=== PATIENT | male | born 1955 | race Caucasian/White ===

== ENCOUNTER 2018-07-17 05:48 | Day surgery (SDC) | payer MEDICARE, BC ==
[2018-07-17] VITALS (9 sets, daily range): BP systolic 95–116; BP diastolic 60–76
[~2018-07-17] VITALS: Ht 193 cm; Wt 89.4 kg
[~2018-07-17 05:48] MED LIST: LASIX20 M1 ORAL; POTASSIUM CHLO20 ME2 ORAL
[2018-07-17] MEDS ORDERED: ASPIR 8181 MG ORAL (06:51)
[2018-07-17] MEDS ORDERED: LR 1000ml 1,000 ML IVLG SCH (07:00)
[2018-07-17 07:22] LABS: BASOPHILS % (AUTO) 1.7 % (0.0-2.0); BLOOD UREA NITROGEN 15 mg/dL (7-18); CHLORIDE 106 MMOL/L (98-107); CREATININE 1.1 MG/DL (0.55-1.30); EOSINOPHILS % (AUTO) 3.4 % (0.0-3.0); HEMOGLOBIN 14.2 G/DL (14.2-18.0); LYMPHOCYTES % (AUTO) 41.2 % (20.0-45.0); MEAN CORPUSCULAR VOLUME 93 FL (80-99); MONOCYTES % (AUTO) 11.1 % (1.0-10.0); NEUTROPHILS % (AUTO) 42.6 % (45.0-75.0); PLATELET COUNT 164 K/UL (150-450); POTASSIUM 3.8 MMOL/L (3.5-5.1); RED CELL DISTRIBUTION WIDTH 11.4 % (11.6-14.8); SODIUM 140 MMOL/L (136-145); WHITE BLOOD COUNT 5.7 K/UL (4.8-10.8)
--- NOTE | 2018-07-17 07:33 | Anethesia Preoperative Eval ---
Anesthesia Pre-op PMH/ROS General Date of Evaluation: Jul 17, 2018 Time of Evaluation: 07:19 Anesthesiologist: Maria Eugenia Sesay ASA Score: ASA 3 Mallampati Score Class I : Soft palate, uvula, fauces, pillars visible Class II: Soft palate, uvula, fauces visible Class III: Soft palate, base of uvula visible Class IV: Only hard plate visible Mallampati Classification: Class I Surgeon: Henrry Diagnosis: Persistent atrial fibrillation Surgical Procedure: Transechophageal echocardiogram; synchronized cardioversion Social History: alcohol use Family History: no anesthesia problems Allergies: Coded Allergies: No Known Allergies (Unverified , 10/15/16) Medications: see eMAR Past Medical History Cardiovascular: Reports: arrhythmia - persistent artrial fibrillation Pulmonary: Reports: other - 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 Exam Physician Exam Last Vital Signs Date Time Temp Pulse Resp B/P (MAP) Pulse Ox O2 Delivery O2 Flow Rate FiO2 07/17/18 07:01 97.7 67 20 102/60 (74) 95 97.7 07/17/18 06:51 Room Air Constitutional: NAD Neurologic: CN 2-12 intact Cardiovascular: RRR Respiratory: CTA Gastrointestinal: S/NT/ND Airway Exam Mallampati Score: Class I MO: full Neck: no limitations TMD: > 3 FB ROM: full Teeth: intact Dentures: no upper, no lower Anesthesia Pre-op A/P Labs Hematology Test 07/17/18 06:53 White Blood Count Pending Red Blood Count Pending Hemoglobin Pending Hematocrit Pending Mean Corpuscular Volume Pending Mean Corpuscular Hemoglobin Pending Mean Corpuscular Hemoglobin Concent Pending Red Cell Distribution Width Pending Platelet Count Pending Mean Platelet Volume Pending Neutrophils (%) (Auto) Pending Lymphocytes (%) (Auto) Pending Monocytes (%) (Auto) Pending Eosinophils (%) (Auto) Pending Basophils (%) (Auto) Pending Coagulation Test 07/17/18 06:53 Prothrombin Time Pending Prothromb Time International Ratio Pending Activated Partial Thromboplast Time Pending Chemistry Test 07/17/18 06:53 Sodium Level Pending Potassium Level Pending Chloride Level Pending Carbon Dioxide Level Pending Blood Urea Nitrogen Pending Creatinine Pending Estimat Glomerular Filtration Rate Pending Glucose Level Pending Calcium Level Pending Studies Pre-op Studies: EKG - 07/17/18: Atrial fibrillation; ventricular rate 80 Risk Assessment & Plan Assessment: asymptomatic 63 year old male with persistent atrial fibrillation requiring cardioversion Plan: MAC Status Change Before Surgery: No Pre-Antibiotics Given Within 1 Hr of Incision: Maria Eugenia Christopher CRNA Jul 17, 2018 07:33
[2018-07-17] MEDS ORDERED: Midazolam 2mg/2ml Inj ONE (07:37)
[2018-07-17] MEDS ORDERED: fentaNYL 100 mcg/2 mL IV ONE (07:37)
[2018-07-17 08:11] LABS: ANION GAP 8 mmol/L (5-15); CARBON DIOXIDE 26 MMOL/L (21-32)
[2018-07-17] MEDS ORDERED: Propofol 200mg/20ml IV ONE (08:30)
[2018-07-17] MEDS ORDERED: Lidocaine 1% MPF 10mg/ml 5ml ONE (08:30)
[2018-07-17] MEDS ORDERED: Metoprolol 5mg/5ml Inj ONE (08:30)
[2018-07-17] MEDS ORDERED: LR 1000ml ONE (08:30)
--- NOTE | 2018-07-17 08:34 | Pre-Procedure Note/Attestation ---
Pre-Procedure Note/Attestation Complete Prior to Procedure Procedure Narrative: YANELI FOLLOWED BY [facility]ERS[facility] Indications for Procedure Pre-Operative Diagnosis: ATRIAL FIBRILLATION Attestation I attest that I discussed the nature of the procedure; its benefits; risks and complications; and alternatives (and the risks and benefits of such alternatives ), prior to the procedure, with the patient (or the patient's legal client service representative). I attest that, if there was a reasonable possibility of needing a blood transfusion, the patient (or the patient's legal client service representative) was given the [facility] standardized written summary, pursuant to the Yassine Braeden Blood Safety Act ([place] Health and Safety Code # 1645, as amended). I attest that I re-evaluated the patient just prior to the surgery and that there has been no change in the patient's H&P, except as documented below: Deion Sales MD Jul 17, 2018 08:34
--- NOTE | 2018-07-17 09:12 | Immediate Post-Op Evaluation ---
Immediate Post-Op Evalulation Immediate Post-Op Evalulation Procedure: YANELI and cardioversion Date of Evaluation: Jul 17, 2018 Time of Evaluation: 09:05 IV Fluids: LR 200 ml Blood Pressure Systolic: 105 Blood Pressure Diastolic: 73 Pulse Rate: 74 Respiratory Rate: 16 O2 Sat by Pulse Oximetry: 99 Temperature (Fahrenheit): 97.6 Pain Score (1-10): 0 Nausea: No Vomiting: No Complications none Patient Status: reacts, patent Hydration Status: adequate Given Within 1 Hr of Incision: Maria Eugenia Christopher CRNA Jul 17, 2018 09:12
--- NOTE | 2018-07-17 10:23 | 48 Hour Post Anesthesia Eval ---
Post Anesthesia Evaluation Procedure: YANELI and cardioversion Date of Evaluation: Jul 17, 2018 Time of Evaluation: 10:22 Blood Pressure Systolic: 116 0: 75 Pulse Rate: 73 Respiratory Rate: 20 Temperature (Fahrenheit): 97.6 O2 Sat by Pulse Oximetry: 98 Airway: patent Nausea: No Vomiting: No Pain Intensity: 0 Hydration Status: adequate Cardiopulmonary Status: stable Mental Status/LOC: patient returned to baseline Follow-up Care/Observations: none Post-Anesthesia Complications: none Follow-up care needed: ready to discharge Maria Eugenia Sesay CRNA Jul 17, 2018 10:23
--- NOTE | 2018-07-17 17:45 | History and Physical Report ---
DATE OF ADMISSION: 07/17/2018 CHIEF COMPLAINT: Fatigue and shortness of breath with exertion. HISTORY OF PRESENT ILLNESS: The patient is a very pleasant 61-year-old gentleman with history of atrial fibrillation, history of Mycobacterium avium intracellulare or MAC, who continues to have trouble with fatigue and dyspnea on exertion and feeling tiredness with exertions. The patient's atrial fibrillation duration is approximately over a year. A 2D echocardiography in the office had shown normal left atrial size and normal left ventricular systolic function with LVEF approximately 50% to 55%. The patient has been considering cardioversion attempts to get back to sinus rhythm for some time and recently, he had made his mind to proceed with an attempt for electrical cardioversion. He presents to this facility as an outpatient for transesophageal echocardiography to rule out left atrial thrombus as he is not anticoagulated due to the fact that his CHADS-VASC score is 0. He takes a full-dose aspirin. Current, he denies any chest pain or shortness of breath. A 12-lead electrocardiogram preoperatively confirmed atrial fibrillation with controlled ventricular response. PAST MEDICAL HISTORY: Atrial fibrillation, the duration of which is unknown, but appears to be over a year and history of MAC. LIST OF MEDICATIONS: Aspirin 325 mg p.o. daily. ALLERGIES: No known drug allergies. FAMILY HISTORY: No premature coronary artery disease in the first-degree relatives. HABITS: Denies any tobacco, alcohol, or illicit drug use. REVIEW OF SYSTEMS: HEENT: Denies any headache, diplopia, or blurred vision. CONSTITUTIONAL: He complains of fatigue, feeling tiredness, but no fever, chills, or night sweats. CARDIOVASCULAR: Denies any chest pain, but some fatigue and tiredness and slight shortness of breath with activities mainly strenuous ones. Denies any PND, orthopnea, or leg swelling. PULMONARY: Denies any cough, hemoptysis, or wheezing. GASTROINTESTINAL: Denies any nausea, vomiting, diarrhea, constipation, abdominal pain, or GI bleed. GENITOURINARY: Denies any hematuria, dysuria, or incontinence. NEUROLOGY: Denies any motor dysfunction, sensory deficit, or altered speech. PHYSICAL EXAMINATION: VITAL SIGNS: Blood pressure today was 102/60 mmHg, pulse of 67, respirations of 20, O2 saturation 95% on room air, and temperature 97.7 degrees Fahrenheit. GENERAL: The patient is a very pleasant 63-year-old gentleman, in no apparent respiratory distress. Alert and oriented x4. HEENT: Atraumatic and normocephalic. Anicteric. Pupils are equal, round, and reactive to light and accommodation. Extraocular muscles intact. NECK: JVP less than 5 cm. No carotid bruit. Carotid upstroke is 2+ bilaterally. CARDIOVASCULAR: Normal S1 and S2. Regular rate and rhythm. No murmurs, gallops, or rubs. PMI is at fourth intercostal space in the midclavicular line. LUNGS: Clear to auscultation bilaterally. ABDOMEN: Irregularly irregular rhythm. No murmurs, gallops, or rubs. LUNGS: Clear to auscultation bilaterally. ABDOMEN: Soft, nontender, and nondistended. No hepatosplenomegaly. Positive bowel sounds. EXTREMITIES: No evidence of edema, clubbing, or cyanosis. LABORATORY FINDINGS: WBC is 5.7, hemoglobin 14.2, hematocrit of 39.0, and platelet count is 164,000. Sodium is 140, potassium is 3.8, chloride 106, bicarbonate 26, BUN 15, and creatinine 1.1. Glucose is 101. Calcium is 9.0. INR is 1.0. ASSESSMENT AND PLAN: The patient is a very pleasant 63-year-old gentleman, who presents to this facility as an outpatient for an attempt for direct current cardioversion. Prior to this procedure, we would like to obtain transesophageal echocardiography to rule out left atrial appendage thrombus measuring the emptying velocity of left atrial appendage and to assess for possible fibrin strands in the left atrial cavity. The patient has requested this test given being symptomatic with atrial fibrillation. He was discussed the risks, benefits, and alternatives of the procedure. He has agreed to the procedure. A 12-lead electrocardiogram this morning has confirmed atrial fibrillation with controlled ventricular response. Of note, given the fact that he has CHADS-VASC score of 0, he has not required anticoagulation therapy and had been taking only aspirin 325 mg daily. If the patient's YANELI is negative for thrombus, we will proceed with direct current cardioversion of atrial fibrillation. We will try 200 joules of biphasic synchronized energy. Should the patient convert to sinus rhythm, we will have the patient on flecainide 50 mg twice a day for a duration of about a month and continue aspirin after which time, we would consider discontinuing both agents. Deion Sales M.D. DR: GARRETT JOB#: [id number] CC:
--- NOTE | 2018-07-17 20:00 | Procedure Note ---
PREOPERATIVE DIAGNOSIS: Atrial fibrillation, appears to be persistent. POSTOPERATIVE FINDINGS: Successful cardioversion of atrial fibrillation to sinus rhythm using 200 joules of synchronized energy. DESCRIPTION OF PROCEDURE: Following transesophageal procedure and face of lack of left atrial thrombus to this procedure. We proceeded with a direct current cardioversion of atrial fibrillation. We selected a 200 joules of synchronized energy, which successfully converted the patient in underlying atrial fibrillation to sinus rhythm at a rate of around 75. The patient tolerated the procedure well without developing any complications. The patient was transferred to the recovery room. CONCLUSION: Successful direct current cardioversion of atrial fibrillation to sinus rhythm. PLAN RECOMMENDATION: We will start the patient on flecainide 50 mg p.o. twice a day. I will follow the patient in the office in about 7 to 10 days. The patient will continue aspirin therapy. Deion Sales M.D. DR: SUSHIL JOB#: [id number] CC:
--- NOTE | 2018-07-20 16:00 | Cardiology Report ---
APPROVED REPORT EKG Measurement Heart [id number] Atrial fibrillation Abnormal ECG
== END 2018-07-17 10:25 | disposition home or self-care (01) ==
LOC: GAS 05:48
DX: I48.91 Unspecified atrial fibrillation (principal); Z79.82 Long term (current) use of aspirin
CPT/HCPCS: 36415; 80048; 85025; 85610; 85730; 92960; 93005; 93312; J2250; J2704; 94003; 94150